=== PATIENT | male | born 1975 | race Caucasian/White ===

== ENCOUNTER 2017-03-29 23:24 | Emergency (ER) | payer OTHER ==
[2017-03-29 23:34] VITALS: BP 138/84
--- NOTE | 2017-03-30 00:17 | ED Physician Documentation ---
History of Present Illness - Stated complaint Stated Complaint: LT WRIST PAIN - Chief complaint Chief Complaint: Ext Problem - History obtained from History obtained from: Patient (pt reports that he fell while going down a hill just prior to arrival and fell on his left hand/wrist. did not hit head, no LOC , no other injuries) Review of Systems Constitutional: denies: Fever, Chills GI: denies: Nausea, Vomiting, Diarrhea Skin: denies: Rash, Lesions, Laceration (s) Musculoskeletal: reports: Extremity pain (left wrist), Joint pain (left wrist), Extremity swelling (left wrist), Joint swelling (left wrist). denies: Neck pain , Back pain Neurologic: denies: Generalized weakness, Numbness (distal left arm) PD PAST MEDICAL HISTORY - Past Medical History Past Medical History: No Cardiovascular: None Respiratory: None Neuro: None Endocrine/Autoimmune: None GI: GERD : None HEENT: None Psych: None Musculoskeletal: None Derm: None - Past Surgical History Past Surgical History: No - Present Medications Home Medications: Ambulatory Orders Medication Instructions Recorded Confirmed Dexlansoprazole [Dexilant] 30 mg PO DAILY 09/10/12 03/29/17 Fluticasone [Flonase] 1 sprays KAMINI BID 09/10/12 03/29/17 - Allergies Allergies/Adverse Reactions: Allergies Allergy/AdvReac Type Severity Reaction Status Date / Time No Known Drug Allergies Allergy Verified 09/10/12 19:40 - Social History Does the pt smoke?: No Smoking Status: Never smoker Does the pt drink ETOH?: No Does the pt have substance abuse?: No - Immunizations Immunizations are current?: Yes - POLST Patient has POLST: No PD ED PE NORMAL - Vitals Vital signs reviewed: Yes - General General: Alert and oriented X 3 - Neck Neck: No bony TTP - Cardiac Cardiac: Strong equal pulses (radial) - Respiratory Respiratory: No respiratory distress, Clear bilaterally - Derm Derm: Normal color, Warm and dry, No rash - Extremities Extremities: Other (left shoulder, upper arm, elbow unremarkable. + pain with supination and pronation, flex and ext of left wrist. left hand and fingers unremarkable. ) - Neuro Neuro: Other (sensation intact to light touch to the left arm ) Results - Vitals Vitals: Vital Signs - 24 hr 03/29/17 23:28 Temperature 37.5 C Heart Rate 80 Respiratory 18 Rate Blood Pressure 138/84 H O2 Saturation 99 Oxygen O2 Source Room air - Rads (name of study) Wrist Radiology: Final report received Procedures - Splint (location) left arm Splint applied by: Nurse Type of splint: Bharti anthony Other: Patient tolerated well PD MEDICAL DECISION MAKING - ED course Complexity details: reviewed results, d/w patient ED course: discussed fractures with the pt. splint placed. pt given care instructions. he will follow up with his primary care provider for a follow up. he was N/V intact. Departure - Departure Disposition: 01 Home, Self Care Clinical Impression: Radius distal fracture, Triquetral fracture Condition: Good Instructions: ED Fx Wrist General, Splint Care Dc Follow-Up: Gabriella Weller PA-C [Primary Care Provider] - Comments: Keep the splint on and keep it clean and dry. call your primary care provider for a follow up in the next week. Return to the ER for any new or worsening symptoms.
--- NOTE | 2017-03-30 00:21 | XRAY Preliminary Report ---
Exam: XR WRIST 4 VIEW LT IMPRESSION: Triquetral avulsion fracture. Additional minimally displaced dorsal medial cortex fractur e of the distal radius oriented sagittally. [facility] SITE ID: [id number]
--- NOTE | 2017-03-30 00:23 | XRAY Report ---
EXAM: LEFT WRIST RADIOGRAPHY EXAM DATE: 03/29/2017 11:59 PM. CLINICAL HISTORY: Fall. COMPARISON: None. TECHNIQUE: 4 views. FINDINGS: Bones: There is a small triquetral avulsion fracture. There is an additional subtle fracture through the dorsal medial aspect of the distal radius. Joints: No dislocation.. Soft Tissues: Mild dorsal soft tissue swelling. IMPRESSION: Triquetral avulsion fracture. Additional minimally displaced dorsal medial cortex fractur e of the distal radius oriented sagittally. [facility] Referring Provider Line: [phone] SITE ID: [id number]
[2017-03-30] MEDS ORDERED: HYDROcod/ACET 5/325 Prepack 6 PO STA (00:33)
== END 2017-03-30 00:58 | disposition home or self-care (01) ==
LOC: ED 23:24
DX: S52.502A Unspecified fracture of the lower end of left radius, initial encounter for closed fracture (principal); S62.112A Displaced fracture of triquetrum [cuneiform] bone, left wrist, initial encounter for closed fracture; W17.81XA Fall down embankment (hill), initial encounter; K21.9 Gastro-esophageal reflux disease without esophagitis
CPT/HCPCS: 29125; 99282; 99283

== ENCOUNTER 2021-06-19 15:47 | Outpatient (CLI) | payer OTHER ==
[2021-06-19 18:19] LABS: BASOPHILS # (AUTO) 0.1 10^3/uL (0.0-0.1); BASOPHILS % (AUTO) 1.4 %; EOSINOPHILS # (AUTO) 0.2 10^3/uL (0.0-0.7); EOSINOPHILS % (AUTO) 4.4 %; HCT - HEMATOCRIT 44.2 % (42.0-52.0); LYMPHOCYTES # (AUTO) 1.4 10^3/uL (1.5-3.5); LYMPHOCYTES % (AUTO) 32.9 %; MEAN CORPUSCULAR HEMOGLOBIN 29.4 pg (27.0-31.0); MEAN CORPUSCULAR HGB CONC 33.9 g/dL (32.0-36.0); MEAN CORPUSCULAR VOLUME 86.5 fL (80.0-94.0); MEAN PLATELET VOLUME 9.6 fL (7.4-11.4); MONOCYTES # (AUTO) 0.5 10^3/uL (0.0-1.0); MONOCYTES % (AUTO) 11.5 %; NEUTROPHILS # (AUTO) 2.2 10^3/uL (1.5-6.6); NEUTROPHILS % (AUTO) 49.6 %; PLT - PLATELET COUNT 265 10^3/uL (130-450); RED BLOOD COUNT 5.11 10^6/uL (4.70-6.10); RED CELL DISTRIBUTION WIDTH 12.5 % (12.0-15.0); WHITE BLOOD COUNT 4.4 x10^3/uL (4.8-10.8)
[2021-06-19 18:36] LABS: ALBUMIN 4.5 g/dL (3.2-5.5); ALBUMIN/GLOBULIN RATIO 1.5 (1.0-2.2); ALKALINE PHOSPHATASE 65 IU/L (42-121); ALT ALANINE AMINOTRANSFERASE 28 IU/L (10-60); AST ASPARTATE AMINOTRANSFERASE 24 IU/L (10-42); BILIRUBIN,TOTAL 0.8 mg/dL (0.2-1.0); BUN - BLOOD UREA NITROGEN 13 mg/dL (6-20); CALCIUM 9.5 mg/dL (8.5-10.3); CARBON DIOXIDE - CO2 28 mmol/L (21-32); CHLORIDE 100 mmol/L (101-111); CHOL/HDL RATIO 4.2 (<5.0); CHOLESTEROL 181 mg/dL; CREATININE 0.8 mg/dL (0.6-1.2); GFR - MDRD 105 (>89); GLUCOSE 100 mg/dL (70-100); HDL CHOLESTEROL 43 mg/dL; LDL CHOLESTEROL,CALCULATED 119 mg/dL; LDL/HDL RATIO 2.8 (<3.6); POTASSIUM 4.1 mmol/L (3.5-5.0); SODIUM 136 mmol/L (135-145); TOTAL PROTEIN 7.6 g/dL (6.7-8.2); TRIGLYCERIDES 93 mg/dL; VLDL CHOLESTEROL 19 mg/dL
[2021-06-19 18:46] LABS: THYROID STIMULATING HORMONE 1.42 uIU/mL (0.34-5.60)
== END 2021-06-19 15:48 | disposition home or self-care (01) ==
LOC: LAB.N 15:47
PROVIDERS: ATTEND Physician Assistant Medical
DX: Z00.00 Encounter for general adult medical examination without abnormal findings (principal); Z12.5 Encounter for screening for malignant neoplasm of prostate
CPT/HCPCS: 36415; 80053; 80061; 83721; 84153; 84443; 85025